=== PATIENT | female | born 1940 | race Caucasian/White ===

== ENCOUNTER 2016-06-17 13:41 | Inpatient (IN) | payer MEDICARE, OTHER ==
[~2016-06-17] VITALS: Ht 160 cm; Wt 78.5 kg
[~2016-06-17 13:41] MED LIST: ADVAIR 500-501 EACH INH; AMARYL 2MG TABLE2 MG PO; ASPIRIN81 MG PO; ELAVIL 10 MG TA10 MG PO; FERROUS SULFAT325 MG PO; LEVAQUIN250 MG PO; LISINOPRIL40 MG PO; MEDROL DOSEPAK 24 MG PO; METOPROLOL SUCC50 MG PO; NEURONTIN 300300 MG PO; PAIN RELIEVER650 MG PO; PANTOPRAZOLE SO40 MG PO; PAROXETINE HCL20 MG PO; PRAVASTATIN SOD80 MG PO; PRIMIDONE250 MG PO; RANITIDINE HCL300 MG PO; VERAPAMIL ER240 MG PO; VITAMIN B-121000 MCG PO
[2016-06-17 14:11] LABS: HEMOGLOBIN 9.7 gm/dl (12.3-15.3); RED BLOOD COUNT 3.31 M/UL (4.00-5.10); WHITE BLOOD COUNT 14.3 K/UL (4.5-11.0)
[2016-06-18 04:27] LABS: HEMOGLOBIN 8.4 gm/dl (12.3-15.3)
[2016-06-18 04:29] LABS: RED BLOOD COUNT 2.93 M/UL (4.00-5.10); WHITE BLOOD COUNT 8.8 K/UL (4.5-11.0)
[2016-06-19 04:55] LABS: HEMOGLOBIN 7.9 gm/dl (12.3-15.3); RED BLOOD COUNT 2.76 M/UL (4.00-5.10); WHITE BLOOD COUNT 8.6 K/UL (4.5-11.0)
--- NOTE | 2016-06-19 11:06 | NUR ---
DAUGHTER COMES TO DESK FREQUENTLY ASKING FOR THINGS FOR HER MOM, MOST OF THE TIME WHEN ONE OF US (RN, CONNIE, RT, AMBASSADOR, ETC) COME IN TO GIVE THEM WHATEVER THEY'VE REQUESTED, THEY ARE ASLEEP. WE HAVE HAD TO WAKE THEM TO GIVE NEBS, BREAKFAST/LUNCH, FINGER STICKS, MEDICATION. TELETYPE ADJUSTER WENT IN TWICE TO GIVE THE REQUESTED BATH AND BED CHANGE BUT BOTH PATIENT AND HER DAUGHTER ARE SLEEPING. WILL CONT. TO CHECK ON THEM FREQUENTLY TO MAKE SURE NEEDS ARE MET, BUT TRYING ALSO TO ALLOW THEM THE REST THEY DESIRE.
[2016-06-20 03:38] LABS: HEMOGLOBIN 8.1 gm/dl (12.3-15.3); RED BLOOD COUNT 2.85 M/UL (4.00-5.10); WHITE BLOOD COUNT 7.4 K/UL (4.5-11.0)
[2016-06-21 03:54] LABS: RED BLOOD COUNT 2.8 M/UL (4.00-5.10)
[2016-06-21 03:56] LABS: WHITE BLOOD COUNT 11.2 K/UL (4.5-11.0)
[2016-06-23] MEDS ORDERED: MEDROL DOSEPAK 24 MG PO (12:17)
[2016-06-23] MEDS ORDERED: OMNICEF 300 MG300 MG PO (12:18)
[2016-06-23] MEDS ORDERED: NORVASC 5 MG TAB5 MG PO (14:13)
== END 2016-06-23 14:05 | disposition home or self-care (01) | DRG 871 ==
LOC: ER1 13:41 → MED SURG 4 16:00 → CCU 16:00 → ZEROF 16:00 → MED SURG 4 17:30 → CCU 06-19 20:57 → M/S 06-21 06:30
PROVIDERS: Emergency Medicine; Hospitalist; ADMIT Internal Medicine
PROC: 5A09457 Assistance with Respiratory Ventilation, 24-96 Consecutive Hours, Continuous Positive Airway Pressure (ICD-10-PCS; principal; 2016-06-19)
DX: A41.9 Sepsis, unspecified organism (principal); J96.21 Acute and chronic respiratory failure with hypoxia; J18.9 Pneumonia, unspecified organism; J96.22 Acute and chronic respiratory failure with hypercapnia; J44.1 Chronic obstructive pulmonary disease with (acute) exacerbation; J44.0 Chronic obstructive pulmonary disease with (acute) lower respiratory infection; E11.40 Type 2 diabetes mellitus with diabetic neuropathy, unspecified; I10 Essential (primary) hypertension; D64.9 Anemia, unspecified; D51.9 Vitamin B12 deficiency anemia, unspecified; I27.2 Other secondary pulmonary hypertension; E78.5 Hyperlipidemia, unspecified; G25.81 Restless legs syndrome; M81.0 Age-related osteoporosis without current pathological fracture; K21.9 Gastro-esophageal reflux disease without esophagitis; G47.33 Obstructive sleep apnea (adult) (pediatric); F43.22 Adjustment disorder with anxiety; E66.9 Obesity, unspecified; Z87.891 Personal history of nicotine dependence; Z87.01 Personal history of pneumonia (recurrent); Z68.30 Body mass index [BMI] 30.0-30.9, adult; Z99.81 Dependence on supplemental oxygen; Z79.51 Long term (current) use of inhaled steroids; Z79.82 Long term (current) use of aspirin; Z79.899 Other long term (current) drug therapy; Z90.710 Acquired absence of both cervix and uterus; Z90.49 Acquired absence of other specified parts of digestive tract; Z98.42 Cataract extraction status, left eye; Z98.41 Cataract extraction status, right eye; Z96.1 Presence of intraocular lens; Z98.890 Other specified postprocedural states; Z82.5 Family history of asthma and other chronic lower respiratory diseases; Z83.3 Family history of diabetes mellitus; Z82.49 Family history of ischemic heart disease and other diseases of the circulatory system
CPT/HCPCS: 36415; 36600; 71010; 71020; 80048; 80053; 80202; 82550; 82553; 82803; 82947; 82962; 83540; 83605; 83874; 84484; 85025; 85027; 87040; 87070; 87081; 87205; 93005; 94640; 94660; 94664; 96365; 96375; 99284; J1650; J1885; J1956; J2405; J2920; J2930; J3370; J7030; J7070; J7509

== ENCOUNTER 2020-06-17 02:41 | Inpatient (IN) | payer OTHER ==
[~2020-06-17] VITALS: Ht 154.9 cm; Wt 75.3 kg
[~2020-06-17 02:41] MED LIST changes: +HYDROCHLOROTHIA25 MG PO; +NORVASC10 MG PO; +OMNICEF 300 MG300 MG PO; +SPIRIVA HANDIH18 MCG INH
[2020-06-17 04:22] LABS: HEMOGLOBIN 9.8 gm/dl (12.3-15.3); RED BLOOD COUNT 3.28 M/UL (4.00-5.10); WHITE BLOOD COUNT 10.3 K/UL (4.5-11.0)
[2020-06-17 04:44] LABS: BUN/CREATININE RATIO 13 (0-10)
[2020-06-17] MEDS ORDERED: MECLIZINE HCL25 MG PO (15:58)
[2020-06-17] MEDS ORDERED: ATIVAN0.5 MG PO (15:59)
[2020-06-17] MEDS ORDERED: PROAIR HFA8.5 GM INH (16:00)
[2020-06-17] MEDS ORDERED: IPRAT-ALBUT 0.5-3 ML INH (16:00)
[2020-06-17] MEDS ORDERED: DRISDOL1250 MCG PO (16:00)
[2020-06-17] MEDS ORDERED: TYLENOL EXTRA500 MG PO (16:01)
[2020-06-17] MEDS ORDERED: SYMBICORT 160-1 INHA INH (16:01)
[2020-06-17] MEDS ORDERED: VITAMIN D350 MC3 PO (16:03)
[2020-06-17] MEDS ORDERED: N-ACETYL-L-CYS600 MG PO (16:04)
[2020-06-18 03:31] LABS: HEMOGLOBIN 8.3 gm/dl (12.3-15.3)
[2020-06-18 03:36] LABS: RED BLOOD COUNT 2.66 M/UL (4.00-5.10)
[2020-06-19 04:54] LABS: HEMOGLOBIN 8.3 gm/dl (12.3-15.3); RED BLOOD COUNT 2.68 M/UL (4.00-5.10); WHITE BLOOD COUNT 5.2 K/UL (4.5-11.0)
[2020-06-20 06:22] LABS: BORDETELLA PARAPERTUSSIS Not Detected (Not Detectd); BORDETELLA PERTUSSIS Not Detected (Not Detectd); CHLAMYDIA PNEUMONIAE Not Detected (Not Detectd); CORONAVIRUS HKU1 Not Detected (Not Detectd); CORONAVIRUS NL63 Not Detected (Not Detectd); CORONAVIRUS OC43 Not Detected (Not Detectd); CORONOAVIRUS 229E Not Detected (Not Detectd); HUMAN METAPNEUMOVIRUS Not Detected (Not Detectd); HUMAN RHINOVIRUS/ENTEROVIRUS Not Detected (Not Detectd); INFLUENZA A Not Detected (Not Detectd); INFLUENZA B Not Detected (Not Detectd); MYCOPLASMA PNEUMONIAE Not Detected (Not Detectd); PARAINFLUENZA VIRUS 1 Not Detected (Not Detectd); PARAINFLUENZA VIRUS 2 Not Detected (Not Detectd); PARAINFLUENZA VIRUS 3 Not Detected (Not Detectd); PARAINFLUENZA VIRUS 4 Not Detected (Not Detectd); RESPIRATORY SYNCYTIAL VIRUS Not Detected (Not Detectd)
[2020-06-20 08:41] LABS: SARS-CoV-2 NOT DETECTED (Not Detectd)
[2020-06-21 03:12] LABS: HEMOGLOBIN 8.4 gm/dl (12.3-15.3); RED BLOOD COUNT 2.75 M/UL (4.00-5.10)
[2020-06-22 03:25] LABS: HEMOGLOBIN 8.1 gm/dl (12.3-15.3); RED BLOOD COUNT 2.66 M/UL (4.00-5.10); WHITE BLOOD COUNT 5.1 K/UL (4.5-11.0)
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
--- NOTE | 2020-06-22 07:16 | NUR ---
TAMAR CALLED BACK AND STATED THAT THE PT'S NEICE WAS ON HER WAY TO SIT WITH THE PATIENT.
[2020-06-23 03:14] LABS: HEMOGLOBIN 7.7 gm/dl (12.3-15.3); RED BLOOD COUNT 2.56 M/UL (4.00-5.10); WHITE BLOOD COUNT 5.2 K/UL (4.5-11.0)
[2020-06-23 03:34] LABS: BUN/CREATININE RATIO 14 (0-10)
[2020-06-23] MEDS ORDERED: DOXYCYCLINE HY100 MG PO (08:56)
== END 2020-06-23 17:43 | disposition home health service (06) | DRG 871 ==
LOC: ER1 02:41 → M/S 02:54 → CDU 09:30 → M/S 09:30
PROVIDERS: Emergency Medicine; Physician Assistant Medical; ADMIT Internal Medicine
DX: A41.9 Sepsis, unspecified organism (principal); G93.41 Metabolic encephalopathy; J18.9 Pneumonia, unspecified organism; J96.21 Acute and chronic respiratory failure with hypoxia; N17.9 Acute kidney failure, unspecified; J44.0 Chronic obstructive pulmonary disease with (acute) lower respiratory infection; F32.9 Major depressive disorder, single episode, unspecified; I10 Essential (primary) hypertension; E11.9 Type 2 diabetes mellitus without complications; E66.9 Obesity, unspecified; R53.81 Other malaise; D63.8 Anemia in other chronic diseases classified elsewhere; Z20.822 Contact with and (suspected) exposure to COVID-19; Z96.661 Presence of right artificial ankle joint; Z96.642 Presence of left artificial hip joint; K21.9 Gastro-esophageal reflux disease without esophagitis; E78.5 Hyperlipidemia, unspecified; G25.81 Restless legs syndrome; E53.8 Deficiency of other specified B group vitamins; G47.33 Obstructive sleep apnea (adult) (pediatric); I27.20 Pulmonary hypertension, unspecified; R65.20 Severe sepsis without septic shock; Z90.49 Acquired absence of other specified parts of digestive tract; Z87.891 Personal history of nicotine dependence; Z82.49 Family history of ischemic heart disease and other diseases of the circulatory system; Z83.438 Family history of other disorder of lipoprotein metabolism and other lipidemia; Z90.710 Acquired absence of both cervix and uterus; Z98.49 Cataract extraction status, unspecified eye; Z68.27 Body mass index [BMI] 27.0-27.9, adult; Z99.81 Dependence on supplemental oxygen; E87.6 Hypokalemia
CPT/HCPCS: ECHO; 0240U; 36415; 36600; 70450; 71045; 71046; 80048; 80053; 80307; 81001; 82140; 82550; 82553; 82607; 82803; 82962; 83540; 83550; 83605; 83690; 83735; 83874; 83880; 84132; 84484; 85025; 85027; 85379; 85610; 85730; 87040; 87633; 92610; 93005; 93306; 94640; 94760; 96365; 96366; 96367; 96372; 96375; 97110; 97110-GP-CQ; 97116-GP-CQ; 97162; 97165; 97530-GP-CQ; 97535; 99285; J0360; J0456; J0696; J1335; J1650; J1940; J2185; J2930; J3475; J7030; Q9967

== ENCOUNTER 2020-07-02 01:56 | Emergency (ER) | payer OTHER ==
[~2020-07-02 01:56] MED LIST changes: +ATIVAN0.5 MG PO; +DOXYCYCLINE HY100 MG PO; +DRISDOL1250 MCG PO; +IPRAT-ALBUT 0.5-3 ML INH; +MECLIZINE HCL25 MG PO; +N-ACETYL-L-CYS600 MG PO; +PROAIR HFA8.5 GM INH; +SYMBICORT 160-1 INHA INH; +TYLENOL EXTRA500 MG PO; +VITAMIN D350 MC3 PO
== END 2020-07-02 03:30 | disposition home or self-care (01) ==
LOC: ER1 01:56
DX: S30.0XXA Contusion of lower back and pelvis, initial encounter (principal); J44.9 Chronic obstructive pulmonary disease, unspecified; W19.XXXA Unspecified fall, initial encounter
CPT/HCPCS: 72220; 99283

== ENCOUNTER 2020-07-12 06:43 | Observation (INO) | payer OTHER ==
[~2020-07-12] VITALS: Ht 162.6 cm; Wt 83.9 kg
[2020-07-12 08:49] LABS: HEMOGLOBIN 9.1 gm/dl (12.3-15.3); RED BLOOD COUNT 3.01 M/UL (4.00-5.10); WHITE BLOOD COUNT 9.2 K/UL (4.5-11.0)
[2020-07-12 09:15] LABS: BUN/CREATININE RATIO 14 (0-10)
[2020-07-13 03:17] LABS: HEMOGLOBIN 8.2 gm/dl (12.3-15.3); RED BLOOD COUNT 2.73 M/UL (4.00-5.10); WHITE BLOOD COUNT 9.4 K/UL (4.5-11.0)
[2020-07-14 06:03] LABS: HEMOGLOBIN 8.3 gm/dl (12.3-15.3); RED BLOOD COUNT 2.76 M/UL (4.00-5.10); WHITE BLOOD COUNT 9.1 K/UL (4.5-11.0)
[2020-07-15] MEDS ORDERED: PERCOCET 5/325 T1 EA PO (11:43)
== END 2020-07-15 18:28 | disposition other institution (70) ==
LOC: ER1 06:43 → CDU 17:58 → M/S 17:58
PROVIDERS: Student in an Organized Health Care Education/Training Program; ADMIT Internal Medicine
DX: S32.592A Other specified fracture of left pubis, initial encounter for closed fracture (principal); R53.81 Other malaise; R26.2 Difficulty in walking, not elsewhere classified; J44.9 Chronic obstructive pulmonary disease, unspecified; G25.81 Restless legs syndrome; G47.33 Obstructive sleep apnea (adult) (pediatric); I27.20 Pulmonary hypertension, unspecified; K21.9 Gastro-esophageal reflux disease without esophagitis; I10 Essential (primary) hypertension; E11.9 Type 2 diabetes mellitus without complications; E78.5 Hyperlipidemia, unspecified; E53.8 Deficiency of other specified B group vitamins; Z99.81 Dependence on supplemental oxygen; Z96.642 Presence of left artificial hip joint; Z87.891 Personal history of nicotine dependence; Z98.890 Other specified postprocedural states; Z79.82 Long term (current) use of aspirin; Z79.84 Long term (current) use of oral hypoglycemic drugs; Z79.899 Other long term (current) drug therapy; Z20.822 Contact with and (suspected) exposure to COVID-19; W01.0XXA Fall on same level from slipping, tripping and stumbling without subsequent striking against object, initial encounter
CPT/HCPCS: 36415; 70450; 71045; 71111; 71250; 72125; 72192; 73502; 80048; 80053; 81001; 82550; 82553; 82962; 83540; 83550; 83605; 83874; 84484; 85025; 94640; 94664; 94760; 96372; 96374; 96376; 97110-GP-CQ; 97162; 97166; 97530; 97530-GP-CQ; 99285; G0378; J1650; J1756; U0002